=== PATIENT | male | born 1950 | race Caucasian/White ===

== ENCOUNTER 2018-05-10 11:04 | Emergency (ER) | payer OTHER ==
[~2018-05-10] VITALS: Ht 177.8 cm; Wt 68.0 kg
--- NOTE | 2018-05-10 11:04 | NUR ---
PT BIBA ALS FULL ARREST TO BED 10
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
--- NOTE | 2018-05-10 11:19 | NUR ---
CODE CEASED TIME OF CALLED BY DR. KAY AT THIS TIME.
--- NOTE | 2018-05-10 11:20 | NUR ---
REFER TO CODE SHEETS.
--- NOTE | 2018-05-10 11:50 | NUR ---
[facility] WAS CALLED SPOKE TO [facility]. ANY FURTHER QUESTIONS WILL CALL WITH THE FOLLOWING REFERANCE #: [phone]
--- NOTE | 2018-05-10 12:01 | NUR ---
CALLED TO REPORT , SPOKE TO PATRICK WHO STATED " I WILL LET THE DEPUTY KNOW AND HE WILL CALL BACK".
--- NOTE | 2018-05-10 12:30 | NUR ---
CONTACTED FAMILY MEMBER ZORAIDA EASTON , FAMILY TO COME DOWN TO HOSPITAL.
--- NOTE | 2018-05-10 12:50 | NUR ---
[place] W/ [facility] CALLED WHO STATED " WE WILL CALL LATER TO FOLLOW UP TO SEE WHAT APPLICATOR SPRAYER SAYS".
--- NOTE | 2018-05-10 13:08 | NUR ---
PARTNER/GRANDSON OF PATIENT TAKEN TO QUIET ROOM
--- NOTE | 2018-05-10 13:10 | NUR ---
DR. KAY AND I , WITH FAMILY. DR. KAY NOTIFIED FAMILY OF PATIENTS PASSING
--- NOTE | 2018-05-10 13:30 | NUR ---
FAMILY TAKEN TO SEE PATIENT IN THE ROOM. FAMILY UNDERSTAND NOT TO TOUCH PATIENT TILL CLEARED BY TIRE SERVICER. DRINKS PROVIDED
--- NOTE | 2018-05-10 13:40 | NUR ---
FAMILY HOLDING UP GOOD
--- NOTE | 2018-05-10 13:56 | NUR ---
FAMILY LEFT. WILL NOTIFY THEM RE: CORONERS DISPOSITION. PROVIDED FAMILY LIST OF MORTUARIES.
--- NOTE | 2018-05-10 14:26 | NUR ---
CALLED ELECTRICAL ASSEMBLY SUPERVISOR OFFICE AND SPOKE TO PATRICK WHO STATED " LOOKS LIKE A ELECTRICAL ASSEMBLY SUPERVISOR TOOK THE CASE THEY SHOULD BE CALLING YOU SHORTLY".
--- NOTE | 2018-05-10 14:38 | NUR ---
DEPUTY BERENICE POOLE CALLED, RESPONDED ALL QUESTIONS ASKED. PER " I AM GOING TO CALL SIGNIFICANT OTHER AND TALK TO HER AND I WILL CALL BACK".
--- NOTE | 2018-05-10 14:58 | NUR ---
DEPUTY BERENICE BROWN CALLED WHO STATED " BODY IS RELEASED, FAMILY WILL CALL WITH MORTUARY"
--- NOTE | 2018-05-10 15:30 | NUR ---
SPOKE TO WENCESLAO FROM [facility] UP TIME 1700
--- NOTE | 2018-05-10 17:00 | NUR ---
CALL FROM MORTUARY,[facility] [employer]ACHINE [employer]ANER TIME 1800
--- NOTE | 2018-05-10 18:23 | NUR ---
HANS ARRIVED, IN PATIENT ROOM AT THIS TIME.
--- NOTE | 2018-05-10 18:39 | NUR ---
PATIENT TAKEN BY [facility] STAFF.
== END 2018-05-10 11:19 | disposition expired ==
LOC: MED 11:04
DX: I46.9 Cardiac arrest, cause unspecified (principal); E11.22 Type 2 diabetes mellitus with diabetic chronic kidney disease; I13.11 Hypertensive heart and chronic kidney disease without heart failure, with stage 5 chronic kidney disease, or end stage renal disease; N18.6 End stage renal disease; Z99.2 Dependence on renal dialysis; I25.10 Atherosclerotic heart disease of native coronary artery without angina pectoris; I82.409 Acute embolism and thrombosis of unspecified deep veins of unspecified lower extremity
CPT/HCPCS: 82948; 92950; 99291